=== PATIENT | female | born 1970 | race Caucasian/White ===

== ENCOUNTER → 2019-04-14 10:58 | Outpatient (CLI) | payer OTHER, SELFPAY ==
--- NOTE | ~2019-04-14 | US_ITS ---
EXAMINATION: US thyroid DATE: 04/14/2019 11:24 INDICATION: Nontoxic goiter. TECHNIQUE: Multiple ultrasound images of the thyroid were obtained. COMPARISON: None. FINDINGS: The right thyroid lobe measures 5.3 x 1.7 x 1.7 cm. The left thyroid lobe measures 5.0 x 1.3 x 1.8 c m. In the left thyroid lobe, there is a 1.2 cm solid, hypoechoic, [id number] nodule with ill-de fined margin without echogenic foci (TI-RADS TR4). IMPRESSION: 1. Left thyroid nodule. Thyroid ultrasound is recommended in one year. Reviewed, dictated and finalized at location A. [facility]
== END ==
PROVIDERS: PCP Family Medicine; Visit Provider Family Medicine
DX: E04.9 Nontoxic goiter, unspecified (principal)
CPT/HCPCS: 76536

== ENCOUNTER → 2020-05-03 10:15 | Outpatient (CLI) | payer OTHER, SELFPAY ==
--- NOTE | ~2020-05-03 | US_ITS ---
EXAMINATION: US thyroid EXAM DATE: 05/03/2020 10:41 INDICATION: Nontoxic goiter. TECHNIQUE: Multiple grayscale and Doppler images of the thyroid were obtained (by a technologist who performed the scan) and subsequently reviewed. Individual nodules and recommendations may be reporte d in accordance with TI-RADS system as designated by the 2017 ACR White Paper TI-RADS committee. Comp renzoson is made to prior examination from 04/14/2019. FINDINGS: The right thyroid lobe measures 4.5 x 1.6 x 1.6 cm, the left measuring 4.4 x 1.3 x 1.6 cm, within nor mal size limits. There is homogeneous thyroid echogenicity. Several small nodules. Dominant nodule is left thyroid lobe inferior pole measuring 1.1 x 0.6 x 1.0 cm, solid (2 points), hy poechoic (2 points), wider than tall, smooth margin, without echogenic foci, category TR4 for this no dule. Dimensions provided on previous exam were 1.2 x 0.8 x 1.2, not significantly changed. IMPRESSION: 1. Small thyroid nodules unchanged. Reviewed, dictated and finalized at location A. [facility]
== END ==
PROVIDERS: PCP Family Medicine; Visit Provider Family Medicine
DX: E04.2 Nontoxic multinodular goiter (principal)
CPT/HCPCS: 76536